=== PATIENT | female | born 1950 | race Hispanic/Latino ===

== ENCOUNTER → 2017-12-18 | Outpatient (CLI) | payer OTHER | END | disposition home or self-care (01) | LOC: RAH 10:00 | PROVIDERS: ATTEND Family Medicine | DX: K74.60 Unspecified cirrhosis of liver (principal); N27.1 Small kidney, bilateral; R18.8 Other ascites; R05 Cough | CPT/HCPCS: 71046; 76700 ==

== ENCOUNTER 2018-03-05 06:56 | Day surgery (SDC) | payer OTHER ==
[~2018-03-05] VITALS: Ht 160 cm; Wt 76.7 kg
[2018-03-05 10:06] VITALS: BP 131/65
[2018-03-05 10:18] LABS: HEMATOCRIT 24.4 % (36-48)
== END 2018-03-05 10:56 | disposition home or self-care (01) ==
LOC: DAH 06:56
PROVIDERS: ATTEND Family Medicine
DX: E11.3299 Type 2 diabetes mellitus with mild nonproliferative diabetic retinopathy without macular edema, unspecified eye (principal); Z53.9 Procedure and treatment not carried out, unspecified reason; K74.60 Unspecified cirrhosis of liver; D50.0 Iron deficiency anemia secondary to blood loss (chronic); I12.9 Hypertensive chronic kidney disease with stage 1 through stage 4 chronic kidney disease, or unspecified chronic kidney disease; Z87.891 Personal history of nicotine dependence; Z68.32 Body mass index [BMI] 32.0-32.9, adult
CPT/HCPCS: 36415; 82948; 85014; 85018; 86850; 86900; 86901; 86922

== ENCOUNTER → 2018-04-13 | Outpatient (CLI) | payer OTHER | END | disposition home or self-care (01) | LOC: RAH 11:14 | PROVIDERS: ATTEND Family Medicine | DX: Z12.31 Encounter for screening mammogram for malignant neoplasm of breast (principal) | CPT/HCPCS: 77067 ==

== ENCOUNTER → 2018-07-31 | Outpatient (CLI) | payer OTHER | END | disposition home or self-care (01) | LOC: OIH 16:13 | PROVIDERS: ATTEND Family Medicine | DX: M47.892 Other spondylosis, cervical region (principal); M25.78 Osteophyte, vertebrae | CPT/HCPCS: 72040 ==

== ENCOUNTER → 2018-09-04 | Outpatient (CLI) | payer OTHER | END | disposition home or self-care (01) | LOC: RAH 09:49 | PROVIDERS: ATTEND Family Medicine | DX: I12.9 Hypertensive chronic kidney disease with stage 1 through stage 4 chronic kidney disease, or unspecified chronic kidney disease (principal); N18.9 Chronic kidney disease, unspecified; I51.7 Cardiomegaly | CPT/HCPCS: 93306 ==

== ENCOUNTER → 2019-07-10 | Outpatient (CLI) | payer OTHER | END | disposition home or self-care (01) | LOC: RAH 13:13 | PROVIDERS: ATTEND Family Medicine | DX: Z12.31 Encounter for screening mammogram for malignant neoplasm of breast (principal) | CPT/HCPCS: 77067 ==

== ENCOUNTER → 2019-08-26 | Outpatient (CLI) | payer OTHER | END | disposition home or self-care (01) | LOC: RAH 15:49 | PROVIDERS: ATTEND Family Medicine | DX: M79.604 Pain in right leg (principal); R60.0 Localized edema | CPT/HCPCS: 93971 ==

== ENCOUNTER → 2019-08-29 | Outpatient (CLI) | payer OTHER | END | disposition home or self-care (01) | LOC: OIH 15:36 | PROVIDERS: ATTEND Family Medicine | DX: M17.11 Unilateral primary osteoarthritis, right knee (principal); M85.861 Other specified disorders of bone density and structure, right lower leg | CPT/HCPCS: 73562 ==

== ENCOUNTER → 2019-10-18 | Outpatient (CLI) | payer OTHER ==
[~2019-10-18] MED LIST: ALBUMIN (HUMAN) 25% 200 ML IV SCH
[2019-10-18 10:49] LABS: INR 1.02 (0.85-1.15); PARTIAL THROMBOPLASTIN TIME 26.1 SEC (26.3-35.5); PROTHROMBIN TIME 10.7 SEC (9.6-11.6)
--- NOTE | 2019-10-18 11:00 | NUR ---
U/S GD PARACENTESIS PROCEDURE PERFORMED BY DR. ANNA. PUNCTURE SITE RIGHT LOWER QUADRANT OF ABDOMEN AND PATIENT TOLERATED PROCEDURE WELL. TOTAL REMOVED 3.7 LITERS OF CLOUDY YELLOW ASCITES FLUID. END OF PROCEDURE AT 1115. CATHETER REMOVED AND DRESSING APPLIED. NO BLEEDING NOTED. PT DID NOT MEET CRITERIA FOR ALBUMIN PER [facility] ALBUMIN PROTOCOL GUIDELINES. DISCHARGE INSTRUCTIONS GIVEN TO PATIENT. PATIENT VERBALIZED UNDERSTANDING. PT DISCHARGED AMBULATORY, STABLE, AAO X3 WITH NO C/O PAIN.
== END | disposition home or self-care (01) ==
LOC: RAH 09:51
PROVIDERS: ATTEND Family Medicine
DX: R18.8 Other ascites (principal); I12.9 Hypertensive chronic kidney disease with stage 1 through stage 4 chronic kidney disease, or unspecified chronic kidney disease; N18.9 Chronic kidney disease, unspecified; Z88.8 Allergy status to other drugs, medicaments and biological substances
CPT/HCPCS: 36415; 49083; 85610; 85730; A4215; P9046

== ENCOUNTER → 2020-02-17 | Outpatient (CLI) | payer OTHER | END | disposition home or self-care (01) | LOC: OIH 10:51 | PROVIDERS: ATTEND Family Medicine | DX: M25.511 Pain in right shoulder (principal) | CPT/HCPCS: 73030 ==

== ENCOUNTER → 2020-02-19 | Outpatient (CLI) | payer OTHER | END | disposition home or self-care (01) | LOC: RAH 08:01 | PROVIDERS: ATTEND Internal Medicine Gastroenterology | DX: K80.20 Calculus of gallbladder without cholecystitis without obstruction (principal); K74.60 Unspecified cirrhosis of liver; R18.8 Other ascites | CPT/HCPCS: 76700; 93975 ==

== ENCOUNTER → 2020-07-29 | Outpatient (CLI) | payer OTHER | END | disposition home or self-care (01) | LOC: RAH 08:32 | PROVIDERS: ATTEND Family Medicine | DX: K80.20 Calculus of gallbladder without cholecystitis without obstruction (principal); R16.1 Splenomegaly, not elsewhere classified; R18.8 Other ascites | CPT/HCPCS: 76700 ==

== ENCOUNTER → 2020-08-10 | Outpatient (CLI) | payer OTHER | END | disposition home or self-care (01) | LOC: OIH 13:58 | PROVIDERS: ATTEND Family Medicine | DX: J44.9 Chronic obstructive pulmonary disease, unspecified (principal); R91.8 Other nonspecific abnormal finding of lung field; I51.7 Cardiomegaly | CPT/HCPCS: 71046 ==